=== PATIENT | male | born 1975 | race Two or more races ===

== ENCOUNTER 2017-08-10 20:56 | Emergency (ER) | payer OTHER ==
[~2017-08-10] VITALS: Ht 182.9 cm; Wt 79.4 kg
[2017-08-10 21:19] VITALS: BP 113/79
== END 2017-08-10 23:24 | disposition left against medical advice (07) ==
LOC: ER 20:59
DX: M25.572 Pain in left ankle and joints of left foot (principal); Z53.21 Procedure and treatment not carried out due to patient leaving prior to being seen by health care provider
CPT/HCPCS: 73610